=== PATIENT | male | born 1965 | race African-American/Black ===

== ENCOUNTER 2018-02-13 09:11 | Emergency (ER) | payer OTHER ==
[~2018-02-13] VITALS: Ht 170.2 cm; Wt 86.2 kg
[~2018-02-13 09:11] MED LIST: LEVSIN0.125 MG PO; MOTRIN 600 MG600 MG PO; ZOFRAN4 M1 PO; ZOFRAN4 MG PO
--- NOTE | 2018-02-13 09:44 | ED GI/GU/ABDOMINAL COMPLAINT ---
History of Present Illness General Chief Complaint: General Adult Stated Complaint: BODY ACHES, DIARRHEA Source: patient Exam Limitations: no limitations Vital Signs & Intake/Output Vital Signs & Intake/Output Vital Signs Date Time Temp Pulse Resp B/P B/P Pulse O2 O2 Flow FiO2 Mean Ox Delivery Rate 02/13 1621 70 18 175/80 97 Room Air 02/13 1450 98.6 78 18 168/99 98 02/13 1154 98.2 84 18 149/94 98 Room Air 02/13 0926 99.2 95 18 169/120 98 Room Air Allergies Coded Allergies: NO KNOWN ALLERGIES (NONE 02/13/18) Reconcile Medications Dicyclomine HCl 10 MG CAPSULE 1-2 CAP PO TID abd pain Dicyclomine HCl 10 MG CAPSULE 1-2 CAP PO TID pain Ondansetron (Zofran Odt) 4 MG TAB.RAPDIS 1 TAB SL TID nausea Ondansetron (Zofran Odt) 4 MG TAB.RAPDIS 1 TAB SL TID nausea Oxycodone HCl/Acetaminophen (Percocet 5-325 MG Tablet) 5 MG-325 MG TABLET 1 TAB PO BID pain Oxycodone HCl/Acetaminophen (Percocet 5-325 MG Tablet) 5 MG-325 MG TABLET 1-2 TAB PO BID pain Triage Note: PT STATES HE THINKS HE HAS A BUG. PT STATES HE HAS STOMACH AND BACK PAIN AND HE HAS HAD DIARRHEA ALL LAST EVENING. PT DENIES BLOOD IN HIS STOOL Triage Nurses Notes Reviewed? yes Onset: Abrupt Duration: day(s): (1), constant Timing: recent history Quality/Severity: moderate, sharpness, severe Location: lower abdomen Radiation: back Activities at Onset: none Prior Abdominal Problems: none No Modifying Factors: none HPI: 52-year-old male comes into the emergency room for complaints of lower abdominal pain and diarrhea. Symptoms began yesterday. Said some associated nausea. Denies any fever or vomiting. Denies any blood in his stool. Nothing seems to make the symptoms better or worse. He comes in for further evaluation. Denies any prior abdominal surgeries. Denies any other symptoms of symptoms. Past History Travel History Traveled to [place] past 21 day No Medical History Any Pertinent Medical History? see below for history Cardiovascular: hypertension Surgical History Surgical History: N Psychosocial History What is your primary language Italian Tobacco Use: Never used ETOH Use: occasional use Illicit Drug Use: denies illicit drug use Family History Hx Contributory? No Review of Systems Review of Systems Constitutional: Reports: see HPI. EENTM: Reports: no symptoms. Respiratory: Reports: no symptoms. Cardiovascular: Reports: no symptoms. GI: Reports: see HPI. Genitourinary: Reports: no symptoms. Musculoskeletal: Reports: no symptoms. Skin: Reports: no symptoms. Neurological/Psychological: Reports: no symptoms. Hematologic/Endocrine: Reports: no symptoms. Immunologic/Allergic: Reports: no symptoms. All Other Systems: Reviewed and Negative Physical Exam Physical Exam General Appearance: well developed/nourished, alert, awake Head: atraumatic, normal appearance Eyes: Bilateral: normal appearance, EOMI. Ears, Nose, Throat, Mouth: hearing grossly normal, moist mucous membrane Neck: normal inspection Respiratory: normal breath sounds, no respiratory distress Cardiovascular: regular rate/rhythm Gastrointestinal: soft, tenderness Back: normal inspection Extremities: normal range of motion Neurologic/Psych: awake, alert, oriented x 3, normal gait Skin: intact, normal color Core Measures ACS in differential dx? No Sepsis Present: No Sepsis Focused Exam Completed? No Progress Differential Diagnosis: appendicitis, biliary colic, bowel obstruction, cholecystitis, diverticulitis, gastritis, ischemic bowel, SBO, ureterolithiasis, urinary retention, UTI/pyelo Plan of Care: Orders Procedure Date/time Status Add-on Test (ER Only) 02/13 1505 Active EKG 02/13 1505 Active CULTURE,STOOL 02/13 1327 Active OVA AND PARASITE ANTIGENS 02/13 1327 Active C.DIFFICILE 02/13 1327 Active TROPONIN LEVEL 02/13 1010 Complete URINALYSIS 02/13 0943 Complete LIPASE 02/13 0943 Complete LACTIC ACID 02/13 0943 Complete COMPREHENSIVE METABOLIC PANEL 02/13 0943 Complete CBC WITHOUT DIFFERENTIAL 02/13 0943 Complete AMYLASE 02/13 0943 Complete Laboratory Tests 02/13/18 1243: Lactic Acid Cancelled 02/13/18 1148: Urine Color YEL, Urine Clarity CLEAR, Urine pH 6.5, Ur Specific [place] 1.010, Urine Protein NEG, Urine Ketones NEG, Urine Nitrite NEG, Urine Bilirubin NEG, Urine Urobilinogen 0.2, Ur Leukocyte Esterase NEG, Ur Microscopic EXAM NOT REQUIRED, Urine Hemoglobin NEG, Urine Glucose NEG 02/13/18 1010: Anion Gap 13, Estimated GFR 58 L, BUN/Creatinine Ratio 10.8, Glucose 95, Lactic Acid 1.5, Calcium 9.1, Total Bilirubin 0.9, AST 20, ALT 31, Alkaline Phosphatase 102, Troponin I < 0.01, Total Protein 7.9, Albumin 4.4, Globulin 3.5, Albumin/ Globulin Ratio 1.3, Amylase 140 H, Lipase 29, CBC w Diff NO MAN DIFF REQ, RBC 4.94, MCV 84.9, MCH 29.7, MCHC 35.0, RDW 14.9 H, MPV 9.8, Gran % 87.9 H, Lymphocytes % 8.6 L, Monocytes % 3.3, Eosinophils % 0.1, Basophils % 0.1, Absolute Granulocytes 7.8 H, Absolute Lymphocytes 0.8 L, Absolute Monocytes 0.3, Absolute Eosinophils 0, Absolute Basophils 0 Microbiology 02/13 1327 STOOL: Cryptosporidium Antigen - ORD 02/13 1327 STOOL: Giardia Antigen (ALCON) - ORD 02/13 1327 STOOL: Clostridium difficile Toxin A & B - ORD 02/13 1327 STOOL: Stool Culture - ORD Diagnostic Imaging: Viewed by Me: CT Scan. Discussed w/RAD: CT Scan. Radiology Impression: PATIENT: NICANOR DIAL PRESENT AGE: 52 PATIENT ACCOUNT NO: [id number] : 65 LOCATION: [facility] ORDERING PHYSICIAN: Nicholas HOWARD SERVICE DATE: 02/13/18 EXAM TYPE: CAT - CT ABD & PELVIS W IV CONTRAST EXAMINATION: CT ABDOMEN AND PELVIS WITH CONTRAST CLINICAL INFORMATION: Lower abdominal pain. COMPARISON: No relevant prior imaging. TECHNIQUE: Multidetector volumetric imaging was performed of the abdomen and pelvis following IV administration of 95 mL of Optiray 320 intravenous contrast. Sagittal and coronal reformatted images were obtained on the technologist's workstation. DLP: 393.16 mGy-cm FINDINGS: LUNG BASES: There is minimal bibasilar subsegmental atelectasis. No pleural or pericardial effusion. LIVER, GALLBLADDER, AND BILIARY TREE: Liver attenuation is homogeneous and there is no evidence of a discrete hepatic parenchymal mass. The gallbladder is unremarkable with no evidence of radiopaque gallstones, gallbladder wall thickening, or obvious pericholecystic inflammatory changes. PANCREAS: Unremarkable. SPLEEN: Unremarkable. ADRENAL GLANDS: Unremarkable. KIDNEYS AND URETERS: The kidneys are normal in size, shape, and attenuation. No hydronephrosis, hydroureter, or calculi seen. No perinephric stranding. BLADDER: Unremarkable. GASTROINTESTINAL TRACT: The stomach and small bowel is normal. No evidence of small bowel obstruction. No free intraperitoneal air or fluid. The appendix and colon are normal. No abnormal perirectal or presacral inflammation. 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 Abdominal wall is otherwise intact. LYMPH NODES: No pathologically enlarged mesenteric or retroperitoneal lymph nodes. VASCULAR: Unremarkable. PELVIC VISCERA: Unremarkable. OSSEOUS STRUCTURES: No acute osseous finding. Specifically no worrisome lytic or blastic osseous lesion. IMPRESSION: Unremarkable CT scan of the abdomen and pelvis. There is no discrete finding to provide a definitive explanation for the patient's lower abdominal pain. DICTATED BY: Daniel Echavarria MD DATE/TIME DICTATED:02/13/181257 SECURITY CONTROL ROOM OFFICER:UMM DATE/ TIME TRANSCRIBED:02/13/181257 CONFIDENTIAL, DO NOT COPY WITHOUT APPROPRIATE AUTHORIZATION. <Electronically signed in Other Vendor System> SIGNED BY: Daniel Echavarria MD 02/13/18 1308 Initial ED EKG: normal sinus rhythm, rate (78) Departure Departure Disposition: HOME OR SELF CARE Condition: Stable Clinical Impression Primary Impression: Abdominal pain Referrals: Gentry Corbett DO (PCP/Family) Additional Instructions: Take Bentyl Percocet and Zofran as prescribed. Follow-up with primary care doctor. Return if any concerns worsening symptoms. Please go over all results of today's visit with your primary care doctor. Contact your primary care doctor to let them know you were here in the emergency room. There may be nonspecific findings which may not be related to your visit today here in the emergency room but may require further evaluation and chronic monitoring by your primary care doctor. If you had a laceration today the chance of foreign body always remains. You should follow-up with your primary care doctor for recheck in 3-5 days for a wound check. If you had an x-ray done there is a chance that a fracture could have been missed on initial read and you should follow-up with your primary care doctor for repeat x-rays if symptoms persist. If your blood pressure was elevated here in the emergency room please have rechecked by estee primary care doctor within the next 48. If you were prescribed a narcotic here in the emergency room or any type of controlled substances you're not allowed to drive while taking this medication or operate any type of heavy machinery. Narcotics can make you feel lightheaded dizziness nausea and can cause constipation. You may need to last picker a stool softener. Thank you for choosing [facility] emergency room. Please return to the emergency room immediately if you have any other concerns worsening of symptoms. Departure Forms: Customer Survey General Discharge Information Prescriptions: Current Visit Scripts Oxycodone HCl/Acetaminophen (Percocet 5-325 MG Tablet) 1 TAB PO BID #10 TAB Ondansetron (Zofran Odt) 1 TAB SL TID #10 TAB Dicyclomine HCl 1-2 CAP PO TID #30 CAP Oxycodone HCl/Acetaminophen (Percocet 5-325 MG Tablet) 1-2 TAB PO BID #10 TAB Dicyclomine HCl 1-2 CAP PO TID #30 CAP Ondansetron (Zofran Odt) 1 TAB SL TID #10 TAB Comments 02/13/2018 3:14:03 PM Patient clinically looks well. In no apparent distress. No acute abdomen on exam. No acute findings. With diarrhea and abdominal pain likely viral. No complaints of chest pain or shortness of breath. No fever. No vomiting here. Tolerating oral liquids. Follow-up as outpatient as needed. EKG was done to rule out any type of atypical cardiac presentation but no suspicion for any type of acute cardiac issue going on. Symptoms are consistent with GI.
[2018-02-13 10:29] LABS: ABSOLUTE BASOPHIL COUNT 0 /CUMM (0.0-0.2); ABSOLUTE EOSINOPHIL COUNT 0 /CUMM (0.0-0.7); ABSOLUTE GRANULOCYTE CT 7.8 /CUMM (1.4-6.5); ABSOLUTE LYMPH COUNT 0.8 /CUMM (1.2-3.4); ABSOLUTE MONOCYTE COUNT 0.3 /CUMM (0.10-0.60); BASOPHIL % 0.1 % (0.0-2.0); EOSINOPHIL % 0.1 % (0-5); HEMATOCRIT 41.9 % (42-52); MEAN CORPUSCULAR HGB 29.7 PG (27.0-31.0); MEAN CORPUSCULAR VOLUME 84.9 FL (80.0-94.0); MEAN PLATELET VOLUME 9.8 FL (7.4-10.4); RBC DISTRIBUTION WIDTH 14.9 % (11.5-14.5); RED BLOOD CELL CT 4.94 /CUMM (4.70-6.10); WHITE BLOOD CELL COUNT 8.8 /CUMM (4.8-10.8)
[2018-02-13 11:05] LABS: GRANULOCYTE % 87.9 % (42.2-75.2); PLATELET COUNT 186 /CUMM (130-400)
--- NOTE | 2018-02-13 13:08 | CT SCAN REPORT ---
EXAMINATION: CT ABDOMEN AND PELVIS WITH CONTRAST CLINICAL INFORMATION: Lower abdominal pain. COMPARISON: No relevant prior imaging. TECHNIQUE: Multidetector volumetric imaging was performed of the abdomen and pelvis following IV administration of 95 mL of Optiray 320 intravenous contrast. Sagittal and coronal reformatted images were obtained on the technologist's workstation. DLP: 393.16 mGy-cm FINDINGS: LUNG BASES: There is minimal bibasilar subsegmental atelectasis. No pleural or pericardial effusion. LIVER, GALLBLADDER, AND BILIARY TREE: Liver attenuation is homogeneous and there is no evidence of a discrete hepatic parenchymal mass. The gallbladder is unremarkable with no evidence of radiopaque gallstones, gallbladder wall thickening, or obvious pericholecystic inflammatory changes. PANCREAS: Unremarkable. SPLEEN: Unremarkable. ADRENAL GLANDS: Unremarkable. KIDNEYS AND URETERS: The kidneys are normal in size, shape, and attenuation. No hydronephrosis, hydroureter, or calculi seen. No perinephric stranding. BLADDER: Unremarkable. GASTROINTESTINAL TRACT: The stomach and small bowel is normal. No evidence of small bowel obstruction. No free intraperitoneal air or fluid. The appendix and colon are normal. No abnormal perirectal or presacral inflammation. 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 Abdominal wall is otherwise intact. LYMPH NODES: No pathologically enlarged mesenteric or retroperitoneal lymph nodes. VASCULAR: Unremarkable. PELVIC VISCERA: Unremarkable. OSSEOUS STRUCTURES: No acute osseous finding. Specifically no worrisome lytic or blastic osseous lesion. IMPRESSION: Unremarkable CT scan of the abdomen and pelvis. There is no discrete finding to provide a definitive explanation for the patient's lower abdominal pain.
[2018-02-13] MEDS ORDERED: PERCOCET 5-3251 EACH PO ×2 (15:12→16:05)
[2018-02-13] MEDS ORDERED: DICYCLOMINE HCL10 M1 PO ×2 (15:12→16:05)
[2018-02-13] MEDS ORDERED: ZOFRAN ODT4 M1 SL ×2 (15:12→16:05)
[2018-02-13 16:21] VITALS: BP 175/80
== END 2018-02-13 16:22 ==
LOC: ERH 09:11
PROVIDERS: Physician Assistant Medical
DX: R10.30 Lower abdominal pain, unspecified (principal)
CPT/HCPCS: 74177; 81003; 87045; 87328; 87329; 93005; 93010; 96365; 96367; 96375; J0131; J2405; J2550